=== PATIENT | male | born 1995 | race American Indian/Alaskan Native ===

== ENCOUNTER 2019-01-20 03:48 | Emergency (ER) | payer BC ==
[2019-01-20] MEDS ORDERED: Sodium Chloride 0.9% 1,000 ML IV ONE (04:08)
[2019-01-20] MEDS ORDERED: Famotidine 20 MG/2 ML SDV IVPUSH ONE (04:09)
[2019-01-20] MEDS ORDERED: Iopamidol 612 MG/ML 100 ML Bottle IVPUSH ONE (04:24)
[2019-01-20 04:27] LABS: ANION GAP 15.6; CHLORIDE,CL 102 mmol/L (101-111); SODIUM,NA 137 mmol/L (135-145)
--- NOTE | 2019-01-20 05:16 | EDM.PDOC ---
ED HPI GENERAL MEDICAL PROBLEM - General Chief Complaint: Abdominal Pain Stated Complaint: PRIVATE VEHICLE-PAIN? Time Seen by Provider: 01/20/19 04:00 Source of Information: Reports: Patient History Limitations: Reports: No Limitations - History of Present Illness INITIAL COMMENTS - FREE TEXT/NARRATIVE: ED with c/o of burning n abdomen starting around midnight, tried antacids without relief, vomited a "few times. Last BM yesterday at 3pm. No fever or chills. Similar sx in 2016. rates apin 7/10 pain worse under ribs but is "all over, feels best standing , worse when lying down. Non smoker, one caffeine drink daily, , energy drink one per month. Denies use of ETOH. Upper Abdomen Pain Score (Numeric/FACES): 7 - Related Data Allergies Allergy/AdvReac Type Severity Reaction Status Date / Time No Known Allergies Allergy Verified 01/20/19 04:06 Home Meds: Home Meds . [No Known Home Meds] 09/05/14 [History] Past Medical History - Past Health History Medical/Surgical History: Denies Medical/Surgical History Social & Family History - Tobacco Use Smoking Status *Q: Never Smoker - Caffeine Use Caffeine Use: Reports: Energy Drinks, Soda - Recreational Drug Use Recreational Drug Use: No ED ROS GENERAL - Review of Systems Review Of Systems: ROS reveals no pertinent complaints other than HPI. ED EXAM, GI/ABD - Physical Exam Exam: See Below Exam Limited By: No Limitations General Appearance: Alert, Anxious, Mild Distress Eyes: Bilateral: EOMI Ears: Normal External Exam Nose: Normal Inspection Throat/Mouth: Normal Inspection Head: Atraumatic, Normocephalic Neck: Normal Inspection Respiratory/Chest: No Respiratory Distress, Lungs Clear, Normal Breath Sounds, Chest Non-Tender Cardiovascular: Normal Peripheral Pulses, Regular Rate, Rhythm GI/Abdominal Exam: Normal Bowel Sounds, Soft, Tender (generalized, greater, mid and right upper) Back Exam: Full Range of Motion Extremities: Normal Inspection, Normal Range of Motion Neurological: Alert, Normal Cognition Psychiatric: Normal Affect, Anxious Skin Exam: Warm, Dry, Intact, Normal Color Course - Vital Signs Last Recorded V/S: Last Vital Signs Temp 97.1 F 01/20/19 05:56 Pulse 69 01/20/19 05:56 Resp 18 01/20/19 05:56 BP 117/91 H 01/20/19 05:56 Pulse Ox 99 01/20/19 05:56 - Orders/Labs/Meds Labs: Laboratory Tests 01/20/19 01/20/19 01/20/19 Range/Units 03:58 03:58 03:58 WBC 12.7 H (5.0-10.0) 10^3/uL RBC 5.30 (4.6-6.2) 10^6/uL Hgb 16.3 (14.0-18.0) g/dL Hct 46.1 (40.0-54.0) % MCV 87.0 D (80-100) fL MCH 30.8 (27.0-34.0) pg MCHC 35.4 H (33.0-35.0) g/dL Plt Count 336 (150-450) 10^3/uL Neut % (Auto) 80.9 H (42.2-75.2) % Lymph % (Auto) 12.1 L (20.5-50.1) % [place] % (Auto) 5.6 (2-8) % Eos % (Auto) 1.2 (1.0-3.0) % Baso % (Auto) 0.2 (0.0-1.0) % Sodium 137 (135-145) mmol/L Potassium 3.6 (3.6-5.0) mmol/L Chloride 102 (101-111) mmol/L Carbon Dioxide 23.0 (21.0-31.0) mmol/L Anion Gap 15.6 BUN 11 (7-18) mg/dL Creatinine 0.8 (0.6-1.3) mg/dL Est Cr Clr Drug Dosing 155.57 mL/min Estimated GFR (MDRD) > 60 BUN/Creatinine Ratio 13.75 Glucose 111 H (74-105) mg/dL Calcium 9.0 (8.4-10.2) mg/dl Total Bilirubin 0.8 (0.2-1.0) mg/dL AST 55 H (10-42) IU/L ALT 86 H (10-60) IU/L Alkaline Phosphatase 90 (42-121) IU/L C-Reactive Protein 0.6 (0.0-1.3) mg/dL Total Protein 7.8 (6.7-8.2) g/dl Albumin 4.3 (3.2-5.5) g/dl Globulin 3.5 Albumin/Globulin Ratio 1.23 Amylase 74 (28-100) U/L Urine Color (YELLOW) Urine Appearance (CLEAR) Urine pH (5.0-9.0) Ur Specific [place] (1.005-1.030) Urine Protein (NEGATIVE) Urine Glucose (UA) (NEGATIVE) Urine Ketones (NEGATIVE) Urine Occult Blood (NEGATIVE) Urine Nitrite (NEGATIVE) Urine Bilirubin (NEGATIVE) Urine Urobilinogen (0.2-1.0) mg/dL Ur Leukocyte Esterase (NEGATIVE) Urine Opiates Screen (NEGATIVE) Ur Oxycodone Screen (NEGATIVE) Urine Methadone Screen (NEGATIVE) Ur Barbiturates Screen (NEGATIVE) U Tricyclic Antidepress (NEGATIVE) Ur Phencyclidine Scrn (NEGATIVE) Ur Amphetamine Screen (NEGATIVE) U Methamphetamines Scrn (NEGATIVE) Urine MDMA Screen (NEGATIVE) U Benzodiazepines Scrn (NEGATIVE) Urine Cocaine Screen (NEGATIVE) U Marijuana (THC) Screen (NEGATIVE) Ethyl Alcohol < 5 mg/dL 01/20/19 01/20/19 Range/Units 04:15 04:15 WBC (5.0-10.0) 10^3/uL RBC (4.6-6.2) 10^6/uL Hgb (14.0-18.0) g/dL Hct (40.0-54.0) % MCV (80-100) fL MCH (27.0-34.0) pg MCHC (33.0-35.0) g/dL Plt Count (150-450) 10^3/uL Neut % (Auto) (42.2-75.2) % Lymph % (Auto) (20.5-50.1) % [place] % (Auto) (2-8) % Eos % (Auto) (1.0-3.0) % Baso % (Auto) (0.0-1.0) % Sodium (135-145) mmol/L Potassium (3.6-5.0) mmol/L Chloride (101-111) mmol/L Carbon Dioxide (21.0-31.0) mmol/L Anion Gap BUN (7-18) mg/dL Creatinine (0.6-1.3) mg/dL Est Cr Clr Drug Dosing mL/min Estimated GFR (MDRD) BUN/Creatinine Ratio Glucose (74-105) mg/dL Calcium (8.4-10.2) mg/dl Total Bilirubin (0.2-1.0) mg/dL AST (10-42) IU/L ALT (10-60) IU/L Alkaline Phosphatase (42-121) IU/L C-Reactive Protein (0.0-1.3) mg/dL Total Protein (6.7-8.2) g/dl Albumin (3.2-5.5) g/dl Globulin Albumin/Globulin Ratio Amylase (28-100) U/L Urine Color Yellow (YELLOW) Urine Appearance Cloudy (CLEAR) Urine pH 7.0 (5.0-9.0) Ur Specific [place] 1.020 (1.005-1.030) Urine Protein Negative (NEGATIVE) Urine Glucose (UA) Negative (NEGATIVE) Urine Ketones Trace H (NEGATIVE) Urine Occult Blood Negative (NEGATIVE) Urine Nitrite Negative (NEGATIVE) Urine Bilirubin Negative (NEGATIVE) Urine Urobilinogen 0.2 (0.2-1.0) mg/dL Ur Leukocyte Esterase Negative (NEGATIVE) Urine Opiates Screen Negative (NEGATIVE) Ur Oxycodone Screen Negative (NEGATIVE) Urine Methadone Screen Negative (NEGATIVE) Ur Barbiturates Screen Negative (NEGATIVE) U Tricyclic Antidepress Negative (NEGATIVE) Ur Phencyclidine Scrn Negative (NEGATIVE) Ur Amphetamine Screen Negative (NEGATIVE) U Methamphetamines Scrn Negative (NEGATIVE) Urine MDMA Screen Negative (NEGATIVE) U Benzodiazepines Scrn Negative (NEGATIVE) Urine Cocaine Screen Negative (NEGATIVE) U Marijuana (THC) Screen Negative (NEGATIVE) Ethyl Alcohol mg/dL Meds: Medications Discontinued Medications Generic Name Dose Route Start Last Admin Trade Name Freq PRN Reason Stop Dose Admin Al Hydroxide/Mg Hydroxide 30 ml 01/20/19 05:32 01/20/19 05:38 Gi Cocktail PO 01/20/19 05:33 30 ml ONETIME ONE Administration Famotidine 20 mg 01/20/19 04:09 01/20/19 04:15 Pepcid IVPUSH 01/20/19 04:10 20 mg ONETIME ONE Administration Sodium Chloride 1,000 mls @ 500 mls/hr 01/20/19 04:08 01/20/19 04:17 Normal Saline IV 01/20/19 06:07 500 mls/hr .BOLUS ONE Administration Iopamidol 100 ml 01/20/19 04:24 01/20/19 05:00 Isovue-300 (61%) IVPUSH 01/20/19 04:25 100 ml ONETIME ONE Administration - Radiology Interpretation Free Text/Narrative:: [facility] [place] [facility] Final Radiology Report Call: [phone] assistance Online chat: [email or web address] Name: SONAM PARKER Age: 23Years M Date: 01/20/2019 SSN: -- : [id number] Study: CT ABDOMEN/PELVIS W Requesting Physician: MUSTAPHA GUAJARDO Images: [id number] Addl Studies: Provided Clinical History: Contrast: With Contrast Medium: isovue 300 Contrast Amount: 75 mL Contrast Method: rt hand Page 1 of 2 EXAM: CT Abdomen and Pelvis With Contrast EXAM DATE/TIME: 01/20/2019 4:48 AM CLINICAL HISTORY: 23 years old, male; Pain; Abdominal pain; Acute; Patient HX: Abd pain vomiting, wbc 12.7 TECHNIQUE: Axial computed tomography images of the abdomen and pelvis with intravenous contrast. All CT scans at this facility use at least one of these dose optimization techniques: automated exposure control; mA and/or kV adjustment per patient size (includes targeted exams where dose is matched to clinical indication); or iterative reconstruction. Coronal and sagittal reformatted images were created and reviewed. CONTRAST: Contrast Material: 75 ml of isovue 300; Contrast Route: rt hand COMPARISON: No relevant prior studies available. FINDINGS: Lower thorax: No acute findings. ABDOMEN: Liver: Normal. No mass. Gallbladder and bile ducts: Normal. No calcified stones. No ductal dilation. Pancreas: Normal. No ductal dilation. Spleen: Normal. No splenomegaly. SONAM PAREKR | Final Radiology Report CONFIDENTIALITY STATEMENT This report is intended only for use by the referring physician, and only in accordance with law. If you received this in error, call [phone]. Page 2 of 2 Adrenals: Normal. No mass. Kidneys and ureters: Normal. No hydronephrosis. Stomach and bowel: Normal. No obstruction. No mucosal thickening. Appendix: Appendix is visualized and is normal. PELVIS: Bladder: Unremarkable as visualized. Reproductive: Unremarkable as visualized. ABDOMEN and PELVIS: Intraperitoneal space: Normal. No free air. No significant fluid collection. Bones/joints: No acute fracture. No dislocation. Soft tissues: Unremarkable. Vasculature: Normal. No abdominal aortic aneurysm. Lymph nodes: Normal. No enlarged lymph nodes. IMPRESSION: 1. No acute finding. 2. No CT findings of acute appendicitis. Thank you for allowing us to participate in the care of your patient. Departure - Departure Time of Disposition: 05:40 Disposition: Home, Self-Care 01 Condition: Good Clinical Impression: Abdominal pain Qualifiers: Abdominal location: generalized Qualified Code(s): R10.84 - Generalized abdominal pain - Discharge Information *PRESCRIPTION DRUG MONITORING PROGRAM REVIEWED*: No *COPY OF PRESCRIPTION DRUG MONITORING REPORT IN PATIENT SOULEYMANE: No Instructions: Abdominal Pain, Adult, [id number] Referrals: PCP,None [Primary Care Provider] - Forms: ED Department Discharge Additional Instructions: bland low fat diet increase fruit and fiber in diet miralax one capful daily in 8 ounces liquid as needed for constipation follow up in clinic recurrent symptoms omeprazole 20mg daily to prevent acid symptoms
[2019-01-20] MEDS ORDERED: GI Cocktail Oral Solution 30 ML PO ONE (05:32)
== END 2019-01-20 05:56 | disposition home or self-care (01) ==
LOC: DL.ED 03:48
DX: R10.84 Generalized abdominal pain (principal)
CPT/HCPCS: 36415; 74177; 80053; 80305-QW; 81003; 82150; 85025; 86140; 96365; 96366; 96375; 99284-25; A9270-GY; G0480; J3490; J7030; Q9967